=== PATIENT | male | born 1995 | race Caucasian/White ===

== ENCOUNTER 2018-01-22 00:27 | Emergency (ER) | payer BC, MEDICAID ==
[~2018-01-22] VITALS: Ht 175.3 cm; Wt 77.0 kg
[2018-01-22 00:29] VITALS: BP 129/75
[2018-01-22] MEDS ORDERED: TETanus/Pertussis (Acell)/Diphther VAC/PF (Tdap-Adult) 0.5ml syringe IM ONE (00:40)
== END 2018-01-22 02:15 | disposition home or self-care (01) ==
LOC: ER 00:27
DX: S61.216A Laceration without foreign body of right little finger without damage to nail, initial encounter (principal); S61.214A Laceration without foreign body of right ring finger without damage to nail, initial encounter; W26.0XXA Contact with knife, initial encounter; Y93.89 Activity, other specified; Y92.89 Other specified places as the place of occurrence of the external cause; Y99.9 Unspecified external cause status
CPT/HCPCS: 12001; 90471; 90715; 99284

== ENCOUNTER 2024-12-25 10:13 | Emergency (ER) | payer MEDICAID ==
[~2024-12-25] VITALS: Ht 170.2 cm; Wt 78.0 kg
--- NOTE | 2024-12-25 12:32 | Physician Documentation ---
History of Present Illness ~ General Chief Complaint: See Chief Complaint Stated Complaint: RABIES VACCINE Time Seen by MD: 10:28 Primary Medical Doctor: None History of Present Illness Initial Comments 29-year-old male with family in due to concerns for rabies after finding a dried up bat near the washer and dryer at their house. They did take the bat public Health which the rabies tests came back inconclusive they state that public health told them to come to the emergency room for rabies vaccine. They are quite containing their animals at home just in case they touched the dried bat Medication Reconciliation Allergies: Coded Allergies: No Known Allergies (Unverified , 01/22/18) Past Medical History Past Medical History: No Pertinent History Past Surgical History: no surgical history Lives with: Family Lives In: Home Occupation: employed Review of Systems All Other Systems at this time: Reviewed and Negative Physical Exam Physical Exam Vital Signs: RN Vital Signs have been reviewed: Yes, Weight: 78.000 Physical Exam General: Alert, no apparent distress. HEENT: moist mucous membranes. Neck: Full range of motion. Respiratory: No respiratory distress speaking in full sentences Chest: No accessory muscle use. Cardiovascular: Appears well perfused Neurologic: Oriented x4. Psychiatric: Normal mood and affect. Skin: Normal color, warm and dry. No edema, no ecchymosis. Medical Decision Making Findings Patient left without treatment Departure Time of Disposition: 12:31 Disposition: 07 LEFT AWOL/ELOPED Impression: Primary Impression: General medical exam Condition: Stable Referrals: NO PRIMARY CARE PROVIDER (PCP) Education Educated: Patient Signature Scribe Signature: No scribe Attestation: The note accurately reflects work and decisions made by me.June HAWK 12/25/24 12:31 JUNE BARKSDALE NP Dec 25, 2024 12:32
== END 2024-12-25 10:47 | disposition left against medical advice (07) ==
LOC: ER 10:14
DX: Z00.00 Encounter for general adult medical examination without abnormal findings (principal); Z20.3 Contact with and (suspected) exposure to rabies
CPT/HCPCS: 99281; 99282